=== PATIENT | male | born 1985 | race Caucasian/White ===

== ENCOUNTER 2016-12-07 20:58 | Emergency (ER) | payer OTHER ==
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
--- NOTE | 2016-12-07 21:19 | ED ORDER SUMMARY ---
..... Patient: SYED HICKMAN OrderSheet [facility] VisitID: [id number] [address] [place] [address] 31y, M Registration Date/Time: 12/07/2016 ORDER SHEET Weight: 90.7 kg (stated) Allergies: No Known Drug Allergy GENERAL ORDERS: MEDICATION ORDERS: Tdap IM 0.5 mL (NOW, per protocol) (21:16 12/07/2016 EKoroleva P.A.-C) (21:37 Carol R.N.) Bactrim DS PO (Tablet 800-160 mg) 1 tab (NOW) (21:16 12/07/2016 EKoroleva P.A.-C) (21:37 HOSebonie R.N.) Keflex PO 500 mg (NOW) (21:16 12/07/2016 EKoroleva P.A.-C) (21:37 Carol R.N.) IV FLUIDS: ORDER SHEET NOTES: [Electronically signed by Carlos Leslie R.N. (21:40 12/07/2016)] [Electronically signed by Mara Faulkner P.A.-C (22:10 12/07/2016)] [Electronically locked/signed by Carlos Leslie R.N. (21:40 12/07/2016)]
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
--- NOTE | 2016-12-07 21:19 | ED ORDER SUMMARY ---
..... Patient: SYED HICKMAN OrderSheet [facility] VisitID: [id number] [address] [place] [address] 31y, M Registration Date/Time: 12/07/2016 ORDER SHEET Weight: 90.7 kg (stated) Allergies: No Known Drug Allergy GENERAL ORDERS: MEDICATION ORDERS: Tdap IM 0.5 mL (NOW, per protocol) (21:16 12/07/2016 EKoroleva P.A.-C) (21:37 Carol R.N.) Bactrim DS PO (Tablet 800-160 mg) 1 tab (NOW) (21:16 12/07/2016 EKoroleva P.A.-C) (21:37 HOSebonie R.N.) Keflex PO 500 mg (NOW) (21:16 12/07/2016 EKoroleva P.A.-C) (21:37 Carol R.N.) IV FLUIDS: ORDER SHEET NOTES: [Electronically signed by Carlos Leslie R.N. (21:40 12/07/2016)] [Electronically signed by Mara Faulkner P.A.-C (22:10 12/07/2016)] [Electronically locked/signed by Carlos Leslie R.N. (21:40 12/07/2016)]
--- NOTE | 2016-12-07 22:11 | ED MAR SUMMARY ---
..... Medication Administration Record [facility] [address] [place] [address] Patient: SYED HICKMAN Visit ID: [id number] 31y, M Weight: 90.7 kg Height/Length: 72 in BMI: 27.1 ALLERGIES: No Known Drug Allergy Given :12/07/2016 Carlos Leslie, RAlexandriaNAlexandria Medication Administered: TDAP [IM], Dose: IM. Medication Ordered: Tdap IM 0.5 mL (NOW, per protocol). Given :12/07/2016 Carlos Leslie, R.N. Medication Administered: BACTRIM DS [PO] (SULFAMETHOXAZOLE-TMP DS), Dose: 1 tab Tablets PO. Medication Ordered: Bactrim DS PO (Tablet 800-160 mg) 1 tab (NOW). Given :12/07/2016 Carlos Leslie, R.N. Medication Administered: KEFLEX [PO] (CEPHALEXIN), Dose: 500 mg Capsules PO. Medication Ordered: Keflex PO 500 mg (NOW).
--- NOTE | 2016-12-07 22:11 | ED DISCHARGE INSTRUCTIONS ---
Patient: SYED HICKMAN General Instructions [facility] VisitID: [id number] [address] [place] [address] 31y, M Registration Date/Time: 12/07/2016 Single abscess to the back with incision and drainage. Sebaceous cyst INSTRUCTIONS (packing removal in 3 days [facility] rickey). Warnings: TETANUS: You were given a tetanus shot during your visit. Make a note for future reference. Prescription Medications: Bactrim DS 800 mg / 160 mg: every 12 hours for 10 days. No refill. Substitution is permissible. Keflex 500 mg: take 1 capsule orally every 8 hours for 10 days. No refill. Substitution is permissible. OTC Medications: Take OTC medications according to label instructions. Available over the counter. Acetaminophen (available over the counter): take according to label instructions. Motrin (available over the counter): take according to label instructions. ADDITIONAL INFORMATION Abscess [Incision & Drainage] An abscess (sometimes called a boil) occurs when bacteria get trapped under the skin and begin to grow. Pus forms inside the abscess as the body responds to the bacteria. An abscess can occur with an insect bite, ingrown hair, blocked oil gland, pimple, cyst, or puncture wound. Treatment of your abscess has required an incision to drain the pus. If the abscess pocket was large, a gauze packing may have been inserted. This will need to be removed and possibly replaced on your next visit. Antibiotics are not required in the treatment of a simple abscess, unless the infection is spreading into the skin around the wound (known as cellulitis). Healing of the wound will take about one to two weeks depending on the size of the abscess. Healthy tissue will grow from the bottom and sides of the opening until it seals over. Home Care: The wound may drain for the first two days. Cover the wound with a clean dry dressing. If the dressing becomes soaked with blood or pus, change it. If a gauze packing was placed inside the abscess cavity, you may be advised to remove it yourself. You may do this in the shower. Once the packing is removed, you should wash the area in the shower or bath 3 to 4 times a day, until the skin opening has closed. If you were prescribed antibiotics, take them as directed until they are all gone. You may use acetaminophen (Tylenol) or ibuprofen (Motrin, Advil) to control pain, unless another pain medicine was prescribed. [ NOTE: If you have liver disease or ever had a stomach ulcer, talk with your doctor before using these medicines.] Follow Up with your doctor as advised by our staff. If a gauze packing was inserted in your wound, it should be removed in 1-2 days. Check your wound every day for the signs of worsening infection listed below. Get Prompt Medical Attention if any of the following occur: Increasing redness or swelling Red streaks in the skin leading away from the wound Increasing local pain or swelling Continued pus draining from the wound two days after treatment Fever of 100.4F (38C) or higher, or as directed by your healthcare provider Sebaceous Cyst, Infected (Antibiotic Treatment) A sebaceous cyst occurs when the opening of an oil gland in the skin becomes blocked. The gland swells with skin oil and skin cells. As it gets bigger, it appears as a small painless lump under the skin. Sometimes the cyst can become infected. When the infection is limited, it can be treated with antibiotics alone. If the infection does not clear up with antibiotic treatment, the cyst will need to be drained by making a small incision using local anesthesia. Home care The following guidelines will help you care for your wound at home: Take all of the antibiotic as directed until they are it is gone. Soak the involved area in hot water or apply hot packs (small towel soaked in hot water) for 20 minutes at a time three to four times a day. Apply antibiotic cream or ointment three times a day. You may use acetaminophen or ibuprofen to control pain, unless another medicine was prescribed.If you have chronic liver or kidney disease or ever had a stomach ulcer or GI bleeding, talk with your doctor before using these medicines. Preventing future infection Once this infection has healed, observe the following to reduce the risk of future infections: Keep the area of the cyst clean by bathing or showering daily. Avoid tight fitting clothing in the area of the cyst. Follow-up care Follow up with your doctor as advised by our staff. If a gauze packing was inserted in your wound, it should be removed in 12 days. Check your wound every day for the signs listed below. When to seek medical care Get prompt medical attention if any of the following occur: Pus coming from the cyst Increasing redness around the wound Increasing local pain or swelling Fever of 100.4F (38C) or higher, or as directed by your healthcare provider Diphtheria Toxoid Adsorbed, Tetanus Toxoid, Adsorbed Suspension for injection What is this medicine? DIPHTHERIA AND TETANUS TOXOIDS ADSORBED (dif THEER ee uh and TET n us TOK soids ad SAWRB) is a vaccine. It is used to prevent infections of diphtheria and tetanus (selina). How should I use this medicine? This vaccine is for injection into a muscle. It is given by a health animal care worker. A copy of Vaccine Information Statements will be given before each vaccination. Read this sheet carefully each time. The sheet may change frequently. Talk to your plate worker regarding the use of this medicine in children. While this drug may be prescribed for selected conditions, precautions do apply. What side effects may I notice from receiving this medicine? Side effects that you should report to your doctor or health animal care worker as soon as possible: allergic reactions like skin rash, itching or hives, swelling of the face, lips, or tongue arthritis pain breathing problems changes in hearing extreme changes in behavior fast, irregular heartbeat fever over 100 degrees F pain, tingling, numbness in the hands or feet seizures unusually weak or tired Side effects that usually do not require medical attention (report to your doctor or health animal care worker if they continue or are bothersome): aches or pains bruising, pain, swelling at site where injected headache loss of appetite low-grade fever of 100 degrees F or less nausea, vomiting sleepy swollen glands What may interact with this medicine? adalimumab anakinra infliximab live vaccines medicines that suppress your immune system medicines to treat cancer medicines that treat or prevent blood clots like daily aspirin, enoxaparin, heparin, ticlopidine, warfarin radiopharmaceuticals like iodine I-125 or I-131 What if I miss a dose? Keep appointments for follow-up (booster) doses as directed. It is important not to miss your dose. Call your doctor or health animal care worker if you are unable to keep an appointment. Where should I keep my medicine? This drug is given in a hospital or clinic and will not be stored at home. What should I tell my health care provider before I take this medicine? They need to know if you have any of these conditions: bleeding disorder immune system problems infection with fever low levels of platelets in the blood an unusual or allergic reaction to diphtheria or tetanus toxoid, latex, thimerosal, other medicines, foods, dyes, or preservatives or trying to get breast-feeding What should I watch for while using this medicine? Contact your doctor or health animal care worker and seek emergency medical care if any serious side effects occur. This vaccine, like all vaccines, may not fully protect everyone. Sulfamethoxazole, Trimethoprim Oral tablet What is this medicine? SULFAMETHOXAZOLE; TRIMETHOPRIM or SMX-TMP (suhl fuh meth OK sumanth zohl; trye METH oh prim) is a combination of a sulfonamide antibiotic and a second antibiotic, trimethoprim. It is used to treat or prevent certain kinds of bacterial infections. It will not work for colds, flu, or other viral infections. How should I use this medicine? Take this medicine by mouth with a full glass of water. Follow the directions on the prescription label. Take your medicine at regular intervals. Do not take it more often than directed. Do not skip doses or stop your medicine early. Talk to your plate worker regarding the use of this medicine in children. Special care may be needed. This medicine has been used in children as young as 2 months of age. What side effects may I notice from receiving this medicine? Side effects that you should report to your doctor or health animal care worker as soon as possible: allergic reactions like skin rash or hives, swelling of the face, lips, or tongue breathing problems fever or chills, sore throat irregular heartbeat, chest pain joint or muscle pain pain or difficulty passing urine red pinpoint spots on skin redness, blistering, peeling or loosening of the skin, including inside the mouth unusual bleeding or bruising unusually weak or tired yellowing of the eyes or skin Side effects that usually do not require medical attention (report to your doctor or health animal care worker if they continue or are bothersome): diarrhea dizziness headache loss of appetite nausea, vomiting nervousness What may interact with this medicine? Do not take this medicine with any of the following medications: aminobenzoate potassium dofetilide metronidazole This medicine may also interact with the following medications: ALEXIS inhibitors like benazepril, enalapril, lisinopril, and ramipril cyclosporine digoxin diuretics indomethacin medicines for diabetes methenamine methotrexate phenytoin potassium supplements pyrimethamine sulfinpyrazone tricyclic antidepressants warfarin What if I miss a dose? If you miss a dose, take it as soon as you can. If it is almost time for your next dose, take only that dose. Do not take double or extra doses. Where should I keep my medicine? Keep out of the reach of children. Store at room temperature between 20 to 25 degrees C (68 to 77 degrees F). Protect from light. Throw away any unused medicine after the expiration date. What should I tell my health care provider before I take this medicine? They need to know if you have any of these conditions: anemia asthma being treated with anticonvulsants if you frequently drink alcohol containing drinks kidney disease liver disease low level of folic acid or [id number] dehydrogenase poor nutrition or malabsorption porphyria severe allergies thyroid disorder an unusual or allergic reaction to sulfamethoxazole, trimethoprim, sulfa drugs, other medicines, foods, dyes, or preservatives or trying to get breast-feeding What should I watch for while using this medicine? Tell your doctor or health animal care worker if your symptoms do not improve. Drink several glasses of water a day to reduce the risk of kidney problems. Do not treat diarrhea with over the counter products. Contact your doctor if you have diarrhea that lasts more than 2 days or if it is severe and watery. This medicine can make you more sensitive to the sun. Keep out of the sun. If you cannot avoid being in the sun, wear protective clothing and use a sunscreen. Do not use sun lamps or tanning beds/booths. Cephalexin Monohydrate Oral tablet What is this medicine? CEPHALEXIN (sef a KATYA in) is a cephalosporin antibiotic. It is used to treat certain kinds of bacterial infections It will not work for colds, flu, or other viral infections. How should I use this medicine? Take this medicine by mouth with a full glass of water. Follow the directions on the prescription label. This medicine can be taken with or without food. Take your medicine at regular intervals. Do not take your medicine more often than directed. Take all of your medicine as directed even if you think you are better. Do not skip doses or stop your medicine early. Talk to your plate worker regarding the use of this medicine in children. While this drug may be prescribed for selected conditions, precautions do apply. What side effects may I notice from receiving this medicine? Side effects that you should report to your doctor or health animal care worker as soon as possible: allergic reactions like skin rash, itching or hives, swelling of the face, lips, or tongue breathing problems pain or trouble passing urine redness, blistering, peeling or loosening of the skin, including inside the mouth severe or watery diarrhea unusually weak or tired yellowing of the eyes, skin Side effects that usually do not require medical attention (report to your doctor or health animal care worker if they continue or are bothersome): gas or heartburn genital or anal irritation headache joint or muscle pain nausea, vomiting What may interact with this medicine? probenecid some other antibiotics What if I miss a dose? If you miss a dose, take it as soon as you can. If it is almost time for your next dose, take only that dose. Do not take double or extra doses. There should be at least 4 to 6 hours between doses. Where should I keep my medicine? Keep out of the reach of children. Store at room temperature between 59 and 86 degrees F (15 and 30 degrees C). Throw away any unused medicine after the expiration date. What should I tell my health care provider before I take this medicine? They need to know if you have any of these conditions: kidney disease stomach or intestine problems, especially colitis an unusual or allergic reaction to cephalexin, other cephalosporins, penicillins, other antibiotics, medicines, foods, dyes or preservatives or trying to get breast-feeding What should I watch for while using this medicine? Tell your doctor or health animal care worker if your symptoms do not begin to improve in a few days. Do not treat diarrhea with over the counter products. Contact your doctor if you have diarrhea that lasts more than 2 days or if it is severe and watery. If you have diabetes, you may get a false-positive result for sugar in your urine. Check with your doctor or health animal care worker. You have been given the following additional information: Abscess, Incision And Drainage Sebaceous Cyst, Infected (Abx Tx) Diphtheria Toxoid Adsorbed, Tetanus Toxoid, Adsorbed Suspension for injection Sulfamethoxazole, Trimethoprim Oral tablet Cephalexin Monohydrate Oral tablet (Electronically signed by Mara Faulkner P.A.-C 12/07/2016 22:10)
--- NOTE | 2016-12-07 22:11 | ED MED RECONCILIATION SUMMARY ---
Patient: SYED HICKMAN Medication Reconciliation Report [facility] VisitID: [id number] [address] [place] [address] 31y, M Registration Date/Time: 12/07/2016 Weight: 90.7 kg Height/Length: 72 in. BMI: 27.1 ALLERGIES: No Known Drug Allergy The patient's Home Medications are listed below: NONE. The source(s) of the original Home Medication information: Not obtained. The following Medications were given to the patient in the Emergency Department: TDAP [IM] IM, administered: 12/07/2016 9:37:00 PM Bactrim DS [PO] PO 1 tab, administered: 12/07/2016 9:37:00 PM Keflex [PO] PO 500 mg, administered: 12/07/2016 9:37:00 PM The following Medications were prescribed to the patient: Take OTC medications according to label instructions. Available over the counter. -- Mara Faulkner, P.A.-C Acetaminophen (available over the counter): take according to label instructions. -- Kaushik, Mara, P.A.-C Motrin (available over the counter): take according to label instructions. -- Mara Faulkner, P.A.-C Bactrim DS 800 mg / 160 mg: every 12 hours for 10 days. No refill. Substitution is permissible. -- Mara Faulkner, P.A.-C Keflex 500 mg: take 1 capsule orally every 8 hours for 10 days. No refill. Substitution is permissible. -- Kaushik, Mara, P.A.-C
--- NOTE | 2016-12-07 22:11 | ED MAR SUMMARY ---
..... Medication Administration Record [facility] [address] [place] [address] Patient: SYED HICKMAN Visit ID: [id number] 31y, M Weight: 90.7 kg Height/Length: 72 in BMI: 27.1 ALLERGIES: No Known Drug Allergy Given :12/07/2016 Carlos Leslie, RAlexandriaNAlexandria Medication Administered: TDAP [IM], Dose: IM. Medication Ordered: Tdap IM 0.5 mL (NOW, per protocol). Given :12/07/2016 Carlos Leslie, R.N. Medication Administered: BACTRIM DS [PO] (SULFAMETHOXAZOLE-TMP DS), Dose: 1 tab Tablets PO. Medication Ordered: Bactrim DS PO (Tablet 800-160 mg) 1 tab (NOW). Given :12/07/2016 Carlos Leslie, R.N. Medication Administered: KEFLEX [PO] (CEPHALEXIN), Dose: 500 mg Capsules PO. Medication Ordered: Keflex PO 500 mg (NOW).
--- NOTE | 2016-12-07 22:11 | ED MED RECONCILIATION SUMMARY ---
Patient: SYED HICKMAN Medication Reconciliation Report [facility] VisitID: [id number] [address] [place] [address] 31y, M Registration Date/Time: 12/07/2016 Weight: 90.7 kg Height/Length: 72 in. BMI: 27.1 ALLERGIES: No Known Drug Allergy The patient's Home Medications are listed below: NONE. The source(s) of the original Home Medication information: Not obtained. The following Medications were given to the patient in the Emergency Department: TDAP [IM] IM, administered: 12/07/2016 9:37:00 PM Bactrim DS [PO] PO 1 tab, administered: 12/07/2016 9:37:00 PM Keflex [PO] PO 500 mg, administered: 12/07/2016 9:37:00 PM The following Medications were prescribed to the patient: Take OTC medications according to label instructions. Available over the counter. -- Mara Faulkner, P.A.-C Acetaminophen (available over the counter): take according to label instructions. -- Kaushik, Mara, P.A.-C Motrin (available over the counter): take according to label instructions. -- Mara Faulkner, P.A.-C Bactrim DS 800 mg / 160 mg: every 12 hours for 10 days. No refill. Substitution is permissible. -- Mara Faulkner, P.A.-C Keflex 500 mg: take 1 capsule orally every 8 hours for 10 days. No refill. Substitution is permissible. -- Kaushik, Mara, P.A.-C
--- NOTE | 2016-12-07 22:11 | ED DISCHARGE INSTRUCTIONS ---
Patient: SYED HICKMAN General Instructions [facility] VisitID: [id number] [address] [place] [address] 31y, M Registration Date/Time: 12/07/2016 Single abscess to the back with incision and drainage. Sebaceous cyst INSTRUCTIONS (packing removal in 3 days [facility] rickey). Warnings: TETANUS: You were given a tetanus shot during your visit. Make a note for future reference. Prescription Medications: Bactrim DS 800 mg / 160 mg: every 12 hours for 10 days. No refill. Substitution is permissible. Keflex 500 mg: take 1 capsule orally every 8 hours for 10 days. No refill. Substitution is permissible. OTC Medications: Take OTC medications according to label instructions. Available over the counter. Acetaminophen (available over the counter): take according to label instructions. Motrin (available over the counter): take according to label instructions. ADDITIONAL INFORMATION Abscess [Incision & Drainage] An abscess (sometimes called a boil) occurs when bacteria get trapped under the skin and begin to grow. Pus forms inside the abscess as the body responds to the bacteria. An abscess can occur with an insect bite, ingrown hair, blocked oil gland, pimple, cyst, or puncture wound. Treatment of your abscess has required an incision to drain the pus. If the abscess pocket was large, a gauze packing may have been inserted. This will need to be removed and possibly replaced on your next visit. Antibiotics are not required in the treatment of a simple abscess, unless the infection is spreading into the skin around the wound (known as cellulitis). Healing of the wound will take about one to two weeks depending on the size of the abscess. Healthy tissue will grow from the bottom and sides of the opening until it seals over. Home Care: The wound may drain for the first two days. Cover the wound with a clean dry dressing. If the dressing becomes soaked with blood or pus, change it. If a gauze packing was placed inside the abscess cavity, you may be advised to remove it yourself. You may do this in the shower. Once the packing is removed, you should wash the area in the shower or bath 3 to 4 times a day, until the skin opening has closed. If you were prescribed antibiotics, take them as directed until they are all gone. You may use acetaminophen (Tylenol) or ibuprofen (Motrin, Advil) to control pain, unless another pain medicine was prescribed. [ NOTE: If you have liver disease or ever had a stomach ulcer, talk with your doctor before using these medicines.] Follow Up with your doctor as advised by our staff. If a gauze packing was inserted in your wound, it should be removed in 1-2 days. Check your wound every day for the signs of worsening infection listed below. Get Prompt Medical Attention if any of the following occur: Increasing redness or swelling Red streaks in the skin leading away from the wound Increasing local pain or swelling Continued pus draining from the wound two days after treatment Fever of 100.4F (38C) or higher, or as directed by your healthcare provider Sebaceous Cyst, Infected (Antibiotic Treatment) A sebaceous cyst occurs when the opening of an oil gland in the skin becomes blocked. The gland swells with skin oil and skin cells. As it gets bigger, it appears as a small painless lump under the skin. Sometimes the cyst can become infected. When the infection is limited, it can be treated with antibiotics alone. If the infection does not clear up with antibiotic treatment, the cyst will need to be drained by making a small incision using local anesthesia. Home care The following guidelines will help you care for your wound at home: Take all of the antibiotic as directed until they are it is gone. Soak the involved area in hot water or apply hot packs (small towel soaked in hot water) for 20 minutes at a time three to four times a day. Apply antibiotic cream or ointment three times a day. You may use acetaminophen or ibuprofen to control pain, unless another medicine was prescribed.If you have chronic liver or kidney disease or ever had a stomach ulcer or GI bleeding, talk with your doctor before using these medicines. Preventing future infection Once this infection has healed, observe the following to reduce the risk of future infections: Keep the area of the cyst clean by bathing or showering daily. Avoid tight fitting clothing in the area of the cyst. Follow-up care Follow up with your doctor as advised by our staff. If a gauze packing was inserted in your wound, it should be removed in 12 days. Check your wound every day for the signs listed below. When to seek medical care Get prompt medical attention if any of the following occur: Pus coming from the cyst Increasing redness around the wound Increasing local pain or swelling Fever of 100.4F (38C) or higher, or as directed by your healthcare provider Diphtheria Toxoid Adsorbed, Tetanus Toxoid, Adsorbed Suspension for injection What is this medicine? DIPHTHERIA AND TETANUS TOXOIDS ADSORBED (dif THEER ee uh and TET n us TOK soids ad SAWRB) is a vaccine. It is used to prevent infections of diphtheria and tetanus (selina). How should I use this medicine? This vaccine is for injection into a muscle. It is given by a health cna caregiver. A copy of Vaccine Information Statements will be given before each vaccination. Read this sheet carefully each time. The sheet may change frequently. Talk to your combat information center officer regarding the use of this medicine in children. While this drug may be prescribed for selected conditions, precautions do apply. What side effects may I notice from receiving this medicine? Side effects that you should report to your doctor or health cna caregiver as soon as possible: allergic reactions like skin rash, itching or hives, swelling of the face, lips, or tongue arthritis pain breathing problems changes in hearing extreme changes in behavior fast, irregular heartbeat fever over 100 degrees F pain, tingling, numbness in the hands or feet seizures unusually weak or tired Side effects that usually do not require medical attention (report to your doctor or health cna caregiver if they continue or are bothersome): aches or pains bruising, pain, swelling at site where injected headache loss of appetite low-grade fever of 100 degrees F or less nausea, vomiting sleepy swollen glands What may interact with this medicine? adalimumab anakinra infliximab live vaccines medicines that suppress your immune system medicines to treat cancer medicines that treat or prevent blood clots like daily aspirin, enoxaparin, heparin, ticlopidine, warfarin radiopharmaceuticals like iodine I-125 or I-131 What if I miss a dose? Keep appointments for follow-up (booster) doses as directed. It is important not to miss your dose. Call your doctor or health cna caregiver if you are unable to keep an appointment. Where should I keep my medicine? This drug is given in a hospital or clinic and will not be stored at home. What should I tell my health care provider before I take this medicine? They need to know if you have any of these conditions: bleeding disorder immune system problems infection with fever low levels of platelets in the blood an unusual or allergic reaction to diphtheria or tetanus toxoid, latex, thimerosal, other medicines, foods, dyes, or preservatives or trying to get breast-feeding What should I watch for while using this medicine? Contact your doctor or health cna caregiver and seek emergency medical care if any serious side effects occur. This vaccine, like all vaccines, may not fully protect everyone. Sulfamethoxazole, Trimethoprim Oral tablet What is this medicine? SULFAMETHOXAZOLE; TRIMETHOPRIM or SMX-TMP (suhl fuh meth OK sumanth zohl; trye METH oh prim) is a combination of a sulfonamide antibiotic and a second antibiotic, trimethoprim. It is used to treat or prevent certain kinds of bacterial infections. It will not work for colds, flu, or other viral infections. How should I use this medicine? Take this medicine by mouth with a full glass of water. Follow the directions on the prescription label. Take your medicine at regular intervals. Do not take it more often than directed. Do not skip doses or stop your medicine early. Talk to your combat information center officer regarding the use of this medicine in children. Special care may be needed. This medicine has been used in children as young as 2 months of age. What side effects may I notice from receiving this medicine? Side effects that you should report to your doctor or health cna caregiver as soon as possible: allergic reactions like skin rash or hives, swelling of the face, lips, or tongue breathing problems fever or chills, sore throat irregular heartbeat, chest pain joint or muscle pain pain or difficulty passing urine red pinpoint spots on skin redness, blistering, peeling or loosening of the skin, including inside the mouth unusual bleeding or bruising unusually weak or tired yellowing of the eyes or skin Side effects that usually do not require medical attention (report to your doctor or health cna caregiver if they continue or are bothersome): diarrhea dizziness headache loss of appetite nausea, vomiting nervousness What may interact with this medicine? Do not take this medicine with any of the following medications: aminobenzoate potassium dofetilide metronidazole This medicine may also interact with the following medications: ALEXIS inhibitors like benazepril, enalapril, lisinopril, and ramipril cyclosporine digoxin diuretics indomethacin medicines for diabetes methenamine methotrexate phenytoin potassium supplements pyrimethamine sulfinpyrazone tricyclic antidepressants warfarin What if I miss a dose? If you miss a dose, take it as soon as you can. If it is almost time for your next dose, take only that dose. Do not take double or extra doses. Where should I keep my medicine? Keep out of the reach of children. Store at room temperature between 20 to 25 degrees C (68 to 77 degrees F). Protect from light. Throw away any unused medicine after the expiration date. What should I tell my health care provider before I take this medicine? They need to know if you have any of these conditions: anemia asthma being treated with anticonvulsants if you frequently drink alcohol containing drinks kidney disease liver disease low level of folic acid or [id number] dehydrogenase poor nutrition or malabsorption porphyria severe allergies thyroid disorder an unusual or allergic reaction to sulfamethoxazole, trimethoprim, sulfa drugs, other medicines, foods, dyes, or preservatives or trying to get breast-feeding What should I watch for while using this medicine? Tell your doctor or health cna caregiver if your symptoms do not improve. Drink several glasses of water a day to reduce the risk of kidney problems. Do not treat diarrhea with over the counter products. Contact your doctor if you have diarrhea that lasts more than 2 days or if it is severe and watery. This medicine can make you more sensitive to the sun. Keep out of the sun. If you cannot avoid being in the sun, wear protective clothing and use a sunscreen. Do not use sun lamps or tanning beds/booths. Cephalexin Monohydrate Oral tablet What is this medicine? CEPHALEXIN (sef a KATYA in) is a cephalosporin antibiotic. It is used to treat certain kinds of bacterial infections It will not work for colds, flu, or other viral infections. How should I use this medicine? Take this medicine by mouth with a full glass of water. Follow the directions on the prescription label. This medicine can be taken with or without food. Take your medicine at regular intervals. Do not take your medicine more often than directed. Take all of your medicine as directed even if you think you are better. Do not skip doses or stop your medicine early. Talk to your combat information center officer regarding the use of this medicine in children. While this drug may be prescribed for selected conditions, precautions do apply. What side effects may I notice from receiving this medicine? Side effects that you should report to your doctor or health cna caregiver as soon as possible: allergic reactions like skin rash, itching or hives, swelling of the face, lips, or tongue breathing problems pain or trouble passing urine redness, blistering, peeling or loosening of the skin, including inside the mouth severe or watery diarrhea unusually weak or tired yellowing of the eyes, skin Side effects that usually do not require medical attention (report to your doctor or health cna caregiver if they continue or are bothersome): gas or heartburn genital or anal irritation headache joint or muscle pain nausea, vomiting What may interact with this medicine? probenecid some other antibiotics What if I miss a dose? If you miss a dose, take it as soon as you can. If it is almost time for your next dose, take only that dose. Do not take double or extra doses. There should be at least 4 to 6 hours between doses. Where should I keep my medicine? Keep out of the reach of children. Store at room temperature between 59 and 86 degrees F (15 and 30 degrees C). Throw away any unused medicine after the expiration date. What should I tell my health care provider before I take this medicine? They need to know if you have any of these conditions: kidney disease stomach or intestine problems, especially colitis an unusual or allergic reaction to cephalexin, other cephalosporins, penicillins, other antibiotics, medicines, foods, dyes or preservatives or trying to get breast-feeding What should I watch for while using this medicine? Tell your doctor or health cna caregiver if your symptoms do not begin to improve in a few days. Do not treat diarrhea with over the counter products. Contact your doctor if you have diarrhea that lasts more than 2 days or if it is severe and watery. If you have diabetes, you may get a false-positive result for sugar in your urine. Check with your doctor or health cna caregiver. You have been given the following additional information: Abscess, Incision And Drainage Sebaceous Cyst, Infected (Abx Tx) Diphtheria Toxoid Adsorbed, Tetanus Toxoid, Adsorbed Suspension for injection Sulfamethoxazole, Trimethoprim Oral tablet Cephalexin Monohydrate Oral tablet (Electronically signed by Mara Faulkner P.A.-C 12/07/2016 22:10)
== END 2016-12-07 21:38 | disposition home or self-care (01) ==
LOC: ED SRH 20:58
DX: L02.219 Cutaneous abscess of trunk, unspecified (principal); L72.3 Sebaceous cyst; F17.210 Nicotine dependence, cigarettes, uncomplicated

== ENCOUNTER 2016-12-10 19:30 | Emergency (ER) | payer OTHER ==
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
--- NOTE | 2016-12-10 19:47 | ED CLINICAL REPORT ---
Clinical Report - Physicians/Mid Levels [facility] [address] [place] [address] 12/10/2016 19:32 Patient: SYED HICKMAN Time Seen: 2016. Arrived- By private vehicle. HISTORY OF PRESENT ILLNESS Chief Complaint: SKIN RASH, LESION, BOIL and TENDER AREA. This started 7 days and is still present. It has been located on the trunk. (no fevers, chills, packing previously placed. on abx. No new complaints. Pain improved). Recent medical care: The patient was seen recently in the emergency department. REVIEW OF SYSTEMS No cough, hoarseness, nausea or diarrhea. All systems otherwise negative, except as recorded above. PAST HISTORY Tetanus immunization status is up-to-date. SOCIAL HISTORY Smoker- current status unknown. No alcohol use or drug use. ADDITIONAL NOTES The nursing notes have been reviewed. PHYSICAL EXAM Vital Signs: 12/10/2016 19:40 BP: 123/85. HR: 72. RR: 18. O2 saturation: 100%. Temp: 98.6 F. Pain level now: 0/10. Appearance: Alert. No acute distress. CVS: Normal heart rate and rhythm. Heart sounds normal. Respiratory: No respiratory distress. Breath sounds normal. Skin: Skin warm. Skin rash present- small erythema minimal/ pink no warmth with packing in place on r. thoracic region. No warmth or tenderness. Neuro: Oriented X 3. PROGRESS AND PROCEDURES PROCEDURES (1/4 inch packing removed, and new 1/4 inch packing placed). Course of Care: Pt to f/u outpatient. Pt stable. NO signs of new infectious process. Patient is stable. Physical exam findings are improved. Symptoms better. Patient/family counseled. Disposition: Discharged. CLINICAL IMPRESSION Abscess check INSTRUCTIONS (remove packing in 48 hours continue antibiotics). Follow-up: Follow up with doctor. (Electronically signed by Mara Faulkner P.A.-C 12/10/2016 20:01)
--- NOTE | 2016-12-10 19:47 | ED CLINICAL REPORT ---
Clinical Report - Physicians/Mid Levels [facility] [address] [place] [address] 12/10/2016 19:32 Patient: SYED HICKMAN Time Seen: 2016. Arrived- By private vehicle. HISTORY OF PRESENT ILLNESS Chief Complaint: SKIN RASH, LESION, BOIL and TENDER AREA. This started 7 days and is still present. It has been located on the trunk. (no fevers, chills, packing previously placed. on abx. No new complaints. Pain improved). Recent medical care: The patient was seen recently in the emergency department. REVIEW OF SYSTEMS No cough, hoarseness, nausea or diarrhea. All systems otherwise negative, except as recorded above. PAST HISTORY Tetanus immunization status is up-to-date. SOCIAL HISTORY Smoker- current status unknown. No alcohol use or drug use. ADDITIONAL NOTES The nursing notes have been reviewed. PHYSICAL EXAM Vital Signs: 12/10/2016 19:40 BP: 123/85. HR: 72. RR: 18. O2 saturation: 100%. Temp: 98.6 F. Pain level now: 0/10. Appearance: Alert. No acute distress. CVS: Normal heart rate and rhythm. Heart sounds normal. Respiratory: No respiratory distress. Breath sounds normal. Skin: Skin warm. Skin rash present- small erythema minimal/ pink no warmth with packing in place on r. thoracic region. No warmth or tenderness. Neuro: Oriented X 3. PROGRESS AND PROCEDURES PROCEDURES (1/4 inch packing removed, and new 1/4 inch packing placed). Course of Care: Pt to f/u outpatient. Pt stable. NO signs of new infectious process. Patient is stable. Physical exam findings are improved. Symptoms better. Patient/family counseled. Disposition: Discharged. CLINICAL IMPRESSION Abscess check INSTRUCTIONS (remove packing in 48 hours continue antibiotics). Follow-up: Follow up with doctor. (Electronically signed by Mara Faulkner P.A.-C 12/10/2016 20:01)
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
--- NOTE | 2016-12-10 20:01 | ED MAR SUMMARY ---
..... Medication Administration Record [facility] [address] [place], [place] [id number] Patient: SYED HICKMAN Visit ID: [id number] 31y, M Weight: 90.7 kg Height/Length: 72 in BMI: 27.1 ALLERGIES: No Known Drug Allergy
--- NOTE | 2016-12-10 20:01 | ED MED RECONCILIATION SUMMARY ---
Patient: SYED HICKMAN Medication Reconciliation Report [facility] VisitID: [id number] [address] [place] [address] 31y, M Registration Date/Time: 12/10/2016 Weight: 90.7 kg Height/Length: 72 in. BMI: 27.1 ALLERGIES: No Known Drug Allergy The patient's Home Medications are listed below: NONE. The source(s) of the original Home Medication information: Not obtained. The following Medications were given to the patient in the Emergency Department: None. The following Medications were prescribed to the patient: None.
--- NOTE | 2016-12-10 20:01 | ED MED RECONCILIATION SUMMARY ---
Patient: SYED HICKMAN Medication Reconciliation Report [facility] VisitID: [id number] [address] [place] [place] [address] 31y, M Registration Date/Time: 12/10/2016 Weight: 90.7 kg Height/Length: 72 in. BMI: 27.1 ALLERGIES: No Known Drug Allergy The patient's Home Medications are listed below: NONE. The source(s) of the original Home Medication information: Not obtained. The following Medications were given to the patient in the Emergency Department: None. The following Medications were prescribed to the patient: None.
--- NOTE | 2016-12-10 20:01 | ED DISCHARGE INSTRUCTIONS ---
Patient: SYED HICKMAN General Instructions [facility] VisitID: [id number] [place] [address] 31y, M Registration Date/Time: 12/10/2016 Abscess check INSTRUCTIONS (remove packing in 48 hours continue antibiotics). Follow-up: Follow up with doctor. ADDITIONAL INFORMATION Abscess [Incision & Drainage] An abscess (sometimes called a boil) occurs when bacteria get trapped under the skin and begin to grow. Pus forms inside the abscess as the body responds to the bacteria. An abscess can occur with an insect bite, ingrown hair, blocked oil gland, pimple, cyst, or puncture wound. Treatment of your abscess has required an incision to drain the pus. If the abscess pocket was large, a gauze packing may have been inserted. This will need to be removed and possibly replaced on your next visit. Antibiotics are not required in the treatment of a simple abscess, unless the infection is spreading into the skin around the wound (known as cellulitis). Healing of the wound will take about one to two weeks depending on the size of the abscess. Healthy tissue will grow from the bottom and sides of the opening until it seals over. Home Care: The wound may drain for the first two days. Cover the wound with a clean dry dressing. If the dressing becomes soaked with blood or pus, change it. If a gauze packing was placed inside the abscess cavity, you may be advised to remove it yourself. You may do this in the shower. Once the packing is removed, you should wash the area in the shower or bath 3 to 4 times a day, until the skin opening has closed. If you were prescribed antibiotics, take them as directed until they are all gone. You may use acetaminophen (Tylenol) or ibuprofen (Motrin, Advil) to control pain, unless another pain medicine was prescribed. [ NOTE: If you have liver disease or ever had a stomach ulcer, talk with your doctor before using these medicines.] Follow Up with your doctor as advised by our staff. If a gauze packing was inserted in your wound, it should be removed in 1-2 days. Check your wound every day for the signs of worsening infection listed below. Get Prompt Medical Attention if any of the following occur: Increasing redness or swelling Red streaks in the skin leading away from the wound Increasing local pain or swelling Continued pus draining from the wound two days after treatment Fever of 100.4F (38C) or higher, or as directed by your healthcare provider You have been given the following additional information: Abscess, Incision And Drainage (Electronically signed by Mara Faulkner P.A.-C 12/10/2016 20:01)
--- NOTE | 2016-12-10 20:01 | ED MAR SUMMARY ---
..... Medication Administration Record [facility] [address] [place], [place] [id number] Patient: SYED HICKMAN Visit ID: [id number] 31y, M Weight: 90.7 kg Height/Length: 72 in BMI: 27.1 ALLERGIES: No Known Drug Allergy
== END 2016-12-10 19:48 | disposition home or self-care (01) ==
LOC: ED SRH 19:30
DX: Z48.00 Encounter for change or removal of nonsurgical wound dressing (principal); L02.212 Cutaneous abscess of back [any part, except buttock and flank]